=== PATIENT | female | born 1990 | race Two or more races ===

== ENCOUNTER 2022-01-24 11:56 | Outpatient (CLI) | payer OTHER | END 2022-01-24 12:05 | disposition home or self-care (01) | LOC: SONOGRAMA 11:56 | PROVIDERS: ATTEND Obstetrics & Gynecology Gynecology | DX: N60.19 Diffuse cystic mastopathy of unspecified breast (principal); N64.4 Mastodynia; N84.9 Polyp of female genital tract, unspecified ==

== ENCOUNTER 2023-04-12 09:11 | Outpatient (CLI) | payer OTHER | END 2023-04-12 09:19 | disposition home or self-care (01) | LOC: RAD 09:11 | PROVIDERS: ATTEND Physical Medicine & Rehabilitation | DX: M53.3 Sacrococcygeal disorders, not elsewhere classified (principal) ==